=== PATIENT | male | born 1975 | race Caucasian/White ===

== ENCOUNTER 2023-10-22 04:18 | Day surgery (SDC) | payer OTHER ==
[2023-10-17 13:35] VITALS: BMI 25.8
[2023-10-22] MEDS ORDERED: MIDAZOLAM HCL 2 MG/2 ML SINGLE DOSE VIAL ONE (16:50)
[2023-10-22 17:33] VITALS: RESP 18
[2023-10-22 18:21] VITALS: BP 129/74; PULSE 85; TEMP 97.6
== END 2023-10-22 18:10 | disposition home or self-care (01) ==
LOC: JASU-SURG 04:18
PROVIDERS: ATTEND Urology
PROC: 0TF4XZZ Fragmentation in Left Kidney Pelvis, External Approach (ICD-10-PCS; principal; 2023-10-22 16:00)
DX: N20.0 Calculus of kidney (principal)